=== PATIENT | female | born 1995 | race Caucasian/White ===

== ENCOUNTER 2020-07-07 16:45 | Day surgery (SDC) ==
[2020-07-07 18:32] VITALS: BMI 37.8
--- NOTE | 2020-07-07 18:54 | PDOC.FPROB ---
FMR OB H&P: HPI - History of Present Illness Chief Complaint: high BP History of Present Illness: Pt is a 25 yo @ 22.6wks who presents due to elevated BP at home. Has history of gHTN in last . Was seen in clinic on 07/06/20 and her BP was 128/74. At home that evening and throughout today her SBP have ranged from 141- 174. Today after getting off work around 3:30pm she felt dizzy, nauseous and had a GRAY. She took her BP after sitting down for about 15 min and it was 174/96. She says she has chronic headaches even when not . she takes tylenol and butalbital. She was recently started on magnesium oxide. GRAY today is not relieved with tylenol. She admits to increased swelling of her ankles. Denies vision changes, abd pain, ctx, vag bleeding or LOF. Primary Care Physician: KIMBERLEY Hsu FMR OB H&P: Current - Care : 5 Para: 1031 Gestational age: 22.6 Due date: 11/04/20 Dating Criteria: 1T US - OB Labs Blood type: O RH: positive FMR OB H&P: History - Past Medical History PMH: migraines - OB History OB History: 1st : gHTN, delivered viable male via VAVD at term - Surgical History Sx History: D - Social History Social History: No TAD - Family History Family History: grandparents: HTN, DM FMR OB H&P: Medications - Current Home Medications: Medication Instructions Recorded Confirmed Type Aspirin [Ecotrin] 81 mg PO DAILY 07/07/20 07/07/20 History Butalbital/Aspirin/Caffeine 07/07/20 07/07/20 History [Butalbital/Aspirin/Caffeine Capsule] Cyclobenzaprine [Flexeril] 5 mg PO BID PRN #30 tab 07/07/20 Rx Magnesium Oxide 400 mg PO 07/07/20 History Vitamin 07/07/20 History Allergies/Adverse Reactions: Allergies Allergy/AdvReac Type Severity Reaction Status Date / Time penicillamine Allergy Verified 07/07/20 19:09 FMR OB H&P: ROS - Review of Systems General: denies: fever/chills, weight/appetite/sleep changes Eyes: denies: vision changes, double vision, scotomas ENT: denies: nasal congestion, rhinorrhea Cardiovascular: reports: edema. denies: chest pain, palpitation Respiratory: denies: cough, congestion, shortness of breath Gastrointestinal: reports: nausea. denies: abdominal pain, vomiting, diarrhea Genitourinary (Female): denies: dysuria, vaginal bleeding, contractions, vaginal pressure Musculoskeletal: denies: pain Neurologic: reports: headache. denies: syncope Integumentary: denies: rash Endocrine: denies: polyuria Psychological: denies: depression FMR OB H&P: Vital Signs - Maternal Vital signs: BP 111/70 - Heart Tones Baseline: 140 [facility]MR OB H&P: Physical Exam - Physical Exam General: NAD, awake, alert and oriented HEENT: normocephalic and atraumatic, EOMI, grossly normal vision, grossly normal hearing Neck: supple, FROM Chest: non-tender to palpation Heart: RRR, normal S1/S2, no murmurs/rubs/gallops General: CTAB, no respiratory distress, no wheezing Abdomen: soft, gravid, non-tender Musculoskeletal: normal gait and station, pulses present, FROM in all four extremities Neurological: no focal deficit Skin: no rash, capillary refill <2 seconds, no jaundice Lymphatic: no unusual bruising or bleeding Psychiatric: intact recent and remote memory, good judgement and insight, normal mood and affect FMR OB H&P: Results - Labs Lab results: Laboratory Tests 07/07/20 07/07/20 19:00 19:00 U Random Total Protein Less than 10 Urine Creatinine 135.50 H FMR OB H&P: A/P Discussion: Date/Time: 07/07/20 1850 Elevated BP in -SBP at home 170, normotensive here 111/70 -hx of gHTN in previous -Urine Pr/Cr unable to calculate, Pr <10 -FHT 140s on doppler -calibrated her home BP cuff and taught on proper technique -stable for discharge home, continue routine f/u outpatient at [facility] -continue home meds This H&P was discussed with who agrees with the above documentation and plan. Addendum - Attending - Attending Attestation Date/Time: 07/08/20 [id number] I personally evaluated the patient and discussed the management with Dr. Avila on 07/07/2020 I agree with the History, Examination, Assessment and Plan documented above with any addition or exceptions noted below- 25 yo @22.6 weeks presented with c/o elevated BP. H/o gHTN in prior . Normal BP readings in L&D. Urine protein<10. A?P: 1) IUP@ 22.6 weeks - d/c home with close follow-up. Monitor BP once a day and bring log to next appt. 2) Chronic daily GRAY- will give trial of flexeril
[2020-07-07] MEDS ORDERED: hydrALAZINE 20 MG/ML VIAL SLOW IVP PRN (19:03)
[2020-07-07] MEDS ORDERED: FLU VACC QS2020-21(6MOS UP)/PF 60 MCG/0.5 ML SYRINGE IM ONE (19:15)
== END 2020-07-07 20:35 | disposition home or self-care (01) ==
LOC: L&D/OP 16:45
PROVIDERS: ATTEND Family Medicine
DX: O99.891 Other specified diseases and conditions complicating pregnancy (principal); R03.0 Elevated blood-pressure reading, without diagnosis of hypertension; O99.352 Diseases of the nervous system complicating pregnancy, second trimester; G43.909 Migraine, unspecified, not intractable, without status migrainosus; Z3A.22 22 weeks gestation of pregnancy; Z79.82 Long term (current) use of aspirin; Z88.8 Allergy status to other drugs, medicaments and biological substances
CPT/HCPCS: 82570; 84156; 99282

== ENCOUNTER 2021-07-29 09:45 | Outpatient (CLI) | payer OTHER | END 2021-07-29 09:46 | disposition home or self-care (01) | LOC: DTY/OP 09:45 | PROVIDERS: ATTEND Specialist | DX: Z01.818 Encounter for other preprocedural examination (principal); E66.01 Morbid (severe) obesity due to excess calories | CPT/HCPCS: 97802 ==